=== PATIENT | female | born 1970 | race Two or more races ===

== ENCOUNTER 2020-05-13 09:49 | Outpatient (CLI) | payer OTHER ==
[2020-05-15] MEDS ORDERED: SYNTHROID50 MCG (13:05)
[2020-05-15] MEDS ORDERED: TPN ELECTROLYTE20 ML (13:06)
== END 2020-05-13 09:56 | disposition home or self-care (01) ==
LOC: TOM 09:49
PROVIDERS: ATTEND Colon & Rectal Surgery
DX: C18.1 Malignant neoplasm of appendix (principal); K03.2 Erosion of teeth

== ENCOUNTER → 2020-05-15 | Emergency (ER) | payer OTHER ==
[~2020-05-15] VITALS: Ht 154.9 cm; Wt 49.9 kg
[~2020-05-15] MED LIST: SYNTHROID50 MCG; TPN ELECTROLYTE20 ML
== END | disposition left against medical advice (07) ==
LOC: ER 12:57
DX: Z53.20 Procedure and treatment not carried out because of patient's decision for unspecified reasons (principal)

== ENCOUNTER 2020-05-20 10:50 | Outpatient (CLI) | payer OTHER | END 2020-05-20 12:09 | disposition home or self-care (01) | LOC: RX STUDY 10:50 | PROVIDERS: ATTEND Colon & Rectal Surgery | DX: C18.1 Malignant neoplasm of appendix (principal); K63.2 Fistula of intestine ==

== ENCOUNTER 2020-05-27 07:28 | Day surgery (SDC) | payer OTHER | END 2020-05-27 10:30 | disposition home or self-care (01) | LOC: AMB-ENDOS 07:28 → ADM 14:15 → AMB-ENDOS 14:15 | PROVIDERS: ATTEND Colon & Rectal Surgery | DX: K62.89 Other specified diseases of anus and rectum (principal); K64.0 First degree hemorrhoids ==

== ENCOUNTER 2020-07-07 11:15 | Inpatient (IN) | payer OTHER ==
[~2020-07-07] VITALS: Ht 154.9 cm; Wt 54.4 kg
[2020-07-07] MEDS ORDERED: SINGULAIR10 MG PO (13:41)
[2020-07-07] MEDS ORDERED: CIPRO500 MG PO (13:41)
[2020-07-21] MEDS ORDERED: HYOSCYAMINE0.125 M1 SL (15:33)
[2020-07-21] MEDS ORDERED: OXYC1TAB9 PO (15:34)
== END 2020-07-21 17:09 | disposition home or self-care (01) | DRG 331 ==
LOC: O/R 07-13 08:06 → SURH 07-13 10:30 → SURG 07-14 08:06 → SURH 07-14 08:58
PROVIDERS: Surgery; ADMIT Colon & Rectal Surgery; ATTEND Colon & Rectal Surgery
PROC: 0WQF0ZZ Repair Abdominal Wall, Open Approach (ICD-10-PCS; 2020-07-13)
PROC: 0KXL0ZZ Transfer Left Abdomen Muscle, Open Approach (ICD-10-PCS; 2020-07-13)
PROC: 0KXK0ZZ Transfer Right Abdomen Muscle, Open Approach (ICD-10-PCS; 2020-07-13)
PROC: 0DH67UZ Insertion of Feeding Device into Stomach, Via Natural or Artificial Opening (ICD-10-PCS; 2020-07-13)
PROC: 0DNW0ZZ Release Peritoneum, Open Approach (ICD-10-PCS; principal; 2020-07-13 10:30)
PROC: 0DB80ZZ Excision of Small Intestine, Open Approach (ICD-10-PCS; 2020-07-13 10:30)
DX: K63.2 Fistula of intestine (principal); K43.2 Incisional hernia without obstruction or gangrene; K66.0 Peritoneal adhesions (postprocedural) (postinfection)

== ENCOUNTER 2020-08-24 07:24 | Outpatient (CLI) | payer OTHER ==
[~2020-08-24 07:24] MED LIST changes: +CIPRO500 MG PO; +HYOSCYAMINE0.125 M1 SL; +OXYC1TAB9 PO; +SINGULAIR10 MG PO
== END 2020-08-24 07:36 | disposition home or self-care (01) ==
LOC: LAB 07:24
PROVIDERS: ATTEND Radiology Diagnostic Radiology
DX: K63.2 Fistula of intestine (principal)

== ENCOUNTER 2021-06-23 07:41 | Outpatient (CLI) | payer OTHER | END 2021-06-23 08:00 | disposition home or self-care (01) | LOC: TOM 07:41 | PROVIDERS: ATTEND Colon & Rectal Surgery | DX: Z85.038 Personal history of other malignant neoplasm of large intestine (principal); K63.5 Polyp of colon ==